=== PATIENT | male | born 1955 | race Caucasian/White ===

== ENCOUNTER 2019-06-23 07:00 | Outpatient (CLI) | payer BC, SELFPAY ==
[2019-06-23 11:51] LABS: Anion Gap 8.8 mmol/L (3-11); BUN 14 mg/dL (7-18); CO2 30.2 mmol/L (21.0-32.0); CREATININE 0.94 mg/dL (0.70-1.30); Calcium 9.2 mg/dL (8.5-10.1); Chloride 99 mmol/L (98-107); Glucose 87 mg/dL (74-106); Potassium 3.2 mmol/L (3.5-5.1); Sodium 138 mmol/L (136-145)
== END 2019-06-23 07:20 ==
PROVIDERS: PCP Family Medicine; Visit Provider Family Medicine
DX: I10 Essential (primary) hypertension (principal)
CPT/HCPCS: 36415; 80048

== ENCOUNTER 2019-08-30 08:18 | Emergency (ER) | payer BC, SELFPAY ==
[2019-08-30 08:28] VITALS: BP 142/89; PULSE 89; RESP 16; TEMP 36.7; O2SAT 98
--- NOTE | 2019-08-30 08:45 | DI.RAD_ITS ---
EXAM: XR PORTABLE CHEST AP XR PORTABLE CHEST AP CLINICAL HISTORY: cough. cough TECHNIQUE: 2D digital imaging was performed. COMPARISON: No exams were available for comparison FINDINGS: LUNGS: Clear. No pleural abnormality seen. HEART: Normal. MEDIASTINUM: Normal. OTHER FINDINGS: None. IMPRESSION: No acute pulmonary findings. DATA REPOSITORY: RADIATION DOSE DELIVERED:
--- NOTE | 2019-08-30 09:01 | W.ED.GENAD ---
Discharge Plan Disposition Patient Disposition: HOME Condition: Stable Discharge Details Chief Complaint: GenMedical Clinical Impression: URI (upper respiratory infection) Primary Care Provider: Armando Aponte ED Provider: Anders Marc Home Meds and New Rx's Prescriptions: Continued citalopram [Celexa] 20 mg tablet 20 mg PO DAILY Qty: 90 RF: 4 chlorthalidone 25 mg tablet 25 mg PO DAILY Qty: 90 RF: 4 amlodipine 5 mg tablet 5 mg PO DAILY Qty: 90 RF: 4 omeprazole 20 MG capsule,delayed release(DR/EC) 20 mg PO DAILY Qty: 90 RF: 4 losartan 100 mg tablet 100 mg PO DAILY Qty: 90 RF: 4 Discharge Instructions Instructions: Upper Respiratory Infection (ED) Additional Instructions: At this time your symptoms are unlikely to be caused by coronavirus; however, they could be and you are being tested. It takes over 72 hours for the test results to return. You will be contacted by [facility] staff when your results return. If you do not hear from them in 48 to 72 hours, please contact [facility]. Out of an abundance of precaution it is highly recommended that you self quarantine yourself for a total of 14 days or until symptom-free for greater than 24 to 48 hours. It would be prudent to wear a mask at all times, always wash her hands frequently, and follow-up closely with your primary care provider. It is recommended that you call your primary care provider prior to reassessment. If you are going to a health facility, please call/contact them before you arrive. At this time based on your current symptoms the CDC does not recommend admission, and there is no current clinical indication for your admission here at the hospital. However it is vitally important to monitor your symptoms closely, and if you notice any worsening of your symptoms, or any new symptoms such as worsening shortness of breath, difficulty breathing, persistent fever, worsening chills, chest pain, numbness, weakness, or fainting please call and then return immediately to the emergency department for reevaluation. Please call your primary care provider as soon as possible to make them aware of your current situation and for continued monitoring. As always, it was a pleasure participating in your medical care today. Radg-nkp-wkcbvjo medications as directed for symptomatic control. Ample fluid to avoid dehydration Stand Alone Forms: PENDING COVID-19 TESTING Medical Decision Making This is a 64-year-old gentleman with a history of hypertension, anxiety, GERD, smokes 5 cigarettes daily. 24-hour history of runny nose, nasal congestion, primarily dry cough, subjective hot flashes and general fatigue. He has not had any direct contact with any known coronavirus positive person. However in his work, although he has not traveled outside of [place] or [place], he has had anrq-ly-ygdx contact with many people throughout the region including [place], [place], [place]. He cannot speak for their health status. He did not receive the flu vaccine this year. He appears well, nontoxic, currently afebrile, O2 sats are appropriate on room air. Given his contact regionally with numerous individuals as well as his symptoms over the past 24 hours I do believe that testing for the Covid virus is reasonable. Patient does qualify as a person under interest, placed in room 6, all appropriate PPE used accordingly. I did contact [facility] and supplied them with the information that they requested. We will also obtain single view chest x-ray as well as the flu swab. He did not receive his flu vaccination this year Flu test negative. Chest x-ray unremarkable. Coronavirus testing pending The patient demonstartes some concerning red flags as noted by the CDC for coronavirus including fever, cough, and/or shortness of breath. The patient looks notably clinically well, and does not demonstrate evidence of respiratory distress, significant or severe illness, or sepsis. Per CDC recommendations, coronavirus testing has been performed and is approved by the [facility]. Additionally, patient currently does not demonstrate symptoms indicative of admission or further observation here. At this time based on the patient's current clinical picture symptoms are likely secondary to a non-coronavirus viral illness. Out of an abundance of precaution taking into account the current level of national concern, the patient's entire clinical picture, and CDC recommendations, the patient can be discharged home. Per CDC recommendations we will recommend a 14-day quarantine of the patient I have discussed good handwashing techniques, the importance of a mask, and we have also included CDC recommendations for home monitoring and isolation. I have extensively reviewed the treatment plan and discharge instructions with the patient. I have addressed all patient concerns at this time. The patient was made aware of what symptoms to monitor for that would warrant a return to the emergency department. I also discussed the importance of calling the patients's PCP, as well as the ED for any concern on prior to return. Discussed the plan with the patient, they demonstrate verbal understanding and agreement with our assessment and plan at this time. Medical Records Medical records reviewed: Yes I reviewed the patient's medical records. Imaging Data Radiologic Study: Attestation: I personally reviewed and interpreted this imaging study as follows: Imaging: X-Ray My impression: Read by me as negative, later confirmed by radiology Lab Data Lab results reviewed: Yes I reviewed the patient's lab results. Lab results narrative: 08/30/19 09:17 Nasopharynx Influenza Types A,B Antigen - Final Negative HPI General Mode of arrival: ambulatory. Date/Time Provider Initiated Documentation: 08/30/19 08:19. Limitations to Documentation: no limitations. Information obtained by: patient. HPI Narrative: This is a 64-year-old gentleman with history of hypertension, anxiety, GERD, smokes roughly 5 cigarettes daily, presents to the ER with primarily dry cough, hot flashes, fatigue, runny nose that began over the past 24 hours. 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 He has not taken any jfju-kem-uqlnvfs medications for his symptoms. Denies ear pain, sore throat, chest pain, abdominal pain, nausea, vomiting, bowel or bladder complaints. Related Data Home Medications Medication Instructions Recorded Confirmed omeprazole 20 mg PO DAILY #90 tab-cap 12/05/12 08/30/19 losartan 100 mg tablet 100 mg PO DAILY #90 tab 01/27/19 08/30/19 chlorthalidone 25 mg tablet 25 mg PO DAILY #90 tab 02/17/19 08/30/19 amlodipine 5 mg tablet 5 mg PO DAILY #90 tab 03/24/19 08/30/19 citalopram 20 mg tablet 20 mg PO DAILY #90 tab-cap 06/23/19 08/30/19 Previous Rx's Medication Instructions Recorded losartan 100 mg tablet 100 mg PO DAILY #90 tab 01/27/19 chlorthalidone 25 mg tablet 25 mg PO DAILY #90 tab 02/17/19 amlodipine 5 mg tablet 5 mg PO DAILY #90 tab 03/24/19 citalopram 20 mg tablet 20 mg PO DAILY #90 tab-cap 06/23/19 Allergies Allergy/AdvReac Type Severity Reaction Status Date / Time Penicillins Allergy Unknown Verified 08/30/19 08:32 ROSA Inhibitors AdvReac Intermediate cough Verified 08/30/19 08:32 General Stated Complaint: GenMedical MUNDO: 4 Review of Systems Constitutional Constitutional: Denies chills, Reports fatigue, Reports fever(s) (Subjective hot flashes) and Denies headache(s) Eyes Eyes: Denies eye discharge ENT Ears, Nose, Mouth, and Throat: Denies headache(s), Reports nasal congestion, Reports nasal discharge and Denies sore throat Cardiovascular Cardiovascular: Denies chest pain and Reports dyspnea Respiratory Respiratory: Reports cough and Reports dyspnea Gastrointestinal Gastrointestinal: Denies abdominal pain, Denies nausea and Denies vomiting Genitourinary Genitourinary: Denies dysuria Musculoskeletal Musculoskeletal: Denies myalgias Integumentary/Breasts Skin/Breast: Denies rash Neurologic Neurologic: Denies headache(s) Endocrine Endocrine: Reports fatigue COUNTS INCLUDE 234 BEDS AT THE [facility] Medical History Injury of knee (Resolved 11/02/13) Rupture of Achilles tendon (Resolved) Surgical History 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) Social History Smoking/Tobacco Use Status: Current every day Tobacco Type: cigarettes Alcohol Intake: current Alcohol Intake frequency: 0-2 drinks per day Alcohol type: beer Substance use type: marijuana Do you feel safe at home: Yes Do you feel safe in your relationship?: Yes Exam Const General: cooperative, healthy appearing, comfortable and no acute distress Orientation: alert and awake [facility] Head: normal to inspection, normocephalic and atraumatic Ears: external ears normal, TM's normal bilaterally and EAC's normal General nose exam: nasal discharge clear Mouth: moist mucous membranes Throat: posterior oropharynx normal Eyes Conjunctivae: conjunctivae normal Neck Neck: normal visual inspection, full ROM, no lymphadenopathy, no meningeal signs, trachea midline, supple and nontender Resp Effort & Inspection: normal respiratory effort, able to speak in complete sentences and cough Quality of cough: dry Auscultation: clear to auscultation bilaterally Cardio Rate: regular rate Rhythm: regular rhythm GI Palpation: soft and nontender Back/Spine/Pelvis Back: No back tenderness Skin General skin exam: no rashes or lesions noted Neuro General: patient alert, patient awake, moves all extremities and no focal motor deficits Sensory Exam: no sensory deficits noted Extrem General: normal to inspection and full ROM Psych Appearance: grossly normal Mental Status: mental status grossly normal Course Vital Signs Vital signs: Vital Signs Temperature 36.7 C 08/30/19 08:28 Pulse 89 08/30/19 08:28 Respiratory Rate 16 08/30/19 08:28 Blood Pressure 142/89 H 08/30/19 08:28 Pulse Oximetry 98 08/30/19 08:28 Temperature 36.7 C 08/30/19 08:28 Temperature Source Tympanic 08/30/19 08:28 Pulse 89 08/30/19 08:28 Respiratory Rate 16 08/30/19 08:28 Respiratory Effort 08/30/19 08:31 Blood Pressure 142/89 H 08/30/19 08:28 Blood Pressure Position Sitting 08/30/19 08:28 Pulse Oximetry 98 08/30/19 08:28 Oxygen Delivery Method Room Air 08/30/19 08:28 Oxygen Flow Rate 0 08/30/19 08:28 Pain Level 0 08/30/19 08:28
[2019-08-30 09:55] VITALS: RESP 18
[2019-09-04 15:16] LABS: COVID-19 RT-PCR Result Not Detected (NotDetected)
== END 2019-08-30 10:43 | disposition home or self-care (01) ==
PROVIDERS: Emergency Provider Physician Assistant; PCP Family Medicine
DX: J06.9 Acute upper respiratory infection, unspecified (principal); Z03.818 Encounter for observation for suspected exposure to other biological agents ruled out
CPT/HCPCS: 87449; 99283; U0003; 71045

== ENCOUNTER 2019-12-01 19:34 | Outpatient (REF) | payer BC, SELFPAY ==
[2019-12-04 11:10] LABS: Lyme Ab w Rflx to Lyme Confirm Negative (Negative)
[2019-12-05 23:29] LABS: Anaplasma phagocytophilum Negative (Negative); B. miyamotoi PCR Negative (Negative); Babesia divergens/MO-1 Negative (Negative); Babesia duncani Negative (Negative); Babesia microti Negative (Negative); Ehrlichia chaffeensis Negative (Negative); Ehrlichia ewingii/canis Negative (Negative); Ehrlichia muris eauclairensis Negative (Negative)
== END 2019-12-01 19:54 ==
LOC: LBN 19:34
PROVIDERS: PCP Family Medicine; Visit Provider Nurse Practitioner Family
DX: W57.XXXA Bitten or stung by nonvenomous insect and other nonvenomous arthropods, initial encounter (principal); T14.8XXA Other injury of unspecified body region, initial encounter
CPT/HCPCS: 87798; 86618

== ENCOUNTER 2019-12-28 17:24 | Emergency (ER) | payer BC, SELFPAY ==
[2019-12-28] VITALS (14 sets, daily range): BP systolic 120–135; BP diastolic 65–80; PULSE 63–105; RESP 13–22; TEMP 36.4–36.5; O2SAT 93–99
--- NOTE | 2019-12-28 17:30 | ED.GENADUL_ITS ---
Discharge Plan Disposition Patient Disposition: HOME Condition: Improving Discharge Details Chief Complaint: Allergic Clinical Impression: Hymenoptera reaction Primary Care Provider: Armando Aponte ED Provider: Carrillo Callahan Home Meds and New Rx's Prescriptions: New epinephrine 0.3 mg/0.3 mL auto-injector 0.3 mg IM ONCE Qty: 1 RF: 0 Continued losartan 100 mg tablet 100 mg PO DAILY Qty: 90 RF: 4 omeprazole 20 mg capsule,delayed release(DR/EC) 20 mg PO DAILY Qty: 90 RF: 4 chlorthalidone 25 mg tablet 25 mg PO DAILY Qty: 90 RF: 4 amlodipine 5 mg tablet 5 mg PO DAILY Qty: 90 RF: 4 citalopram [Celexa] 20 mg tablet 20 mg PO DAILY Qty: 90 RF: 4 Discharge Instructions Instructions: Urticaria (ED), Insect Bite or Sting (ED), General Allergic Reaction (ED) Additional Instructions: May apply ice to reduce pain and swelling from insect bite. May continue to use of Benadryl 25 to 50 mg every 4-6 hours as needed for itching. Please take the prednisone as prescribed. I have prescribed you an EpiPen which should be used for impending anaphylactic shock in the case of recurrent insect stings causing allergic reaction. Home to rest this evening. Return to the ER for any acute concerns. Medical Decision Making 64-year-old male presents from home after being stung in the left ankle by a wasp 45 minutes prior. Began to feel diffuse itching and therefore presented to the ER. He arrives a temp of 36, pulse 92, blood pressure 121/68, room air oxygenation of 95%. He has fairly diffuse urticaria and subjective sensation of throat tightness but no evidence of wheeze or oropharyngeal swelling. IV access established, patient given parenteral steroid, antihistamine and fluids. Patient observed on security monitor. He has significant subjective improvement as well as objective near complete resolution of his urticaria. Consistent with allergic reaction to hymenoptera. I will advocate that he take a small burst of prednisone to prevent a recrudescence of symptoms. I will prescribe him an EpiPen in case of future anaphylactic reaction. He is stable and improved, appropriate for discharge to home. HPI General Mode of arrival: ambulatory . Date/Time Provider Initiated Documentation: 12/28/19 17:26 . Limitations to Documentation: no limitations . Information obtained by: patient . History of Present Illness described as moderate, Quality is described as constant, and is localized to the chest and abdomen. Patient started experiencing this minute(s) and it has been con stant. No relieving factors improve symptom(s), No exacerbating factors reported . Patient notes other (Mild shortness of breath, diffuse hives and itching). Patient did receive the following treatments prior to arrival, none Related Data Home Medications Medication Instructions Recorded Confirmed chlorthalidone 25 mg tablet 25 mg PO DAILY #90 tab 02/17/19 12/28/19 amlodipine 5 mg tablet 5 mg PO DAILY #90 tab 03/24/19 12/28/19 citalopram 20 mg tablet 20 mg PO DAILY #90 tab-cap 09/21/19 12/28/19 losartan 100 mg tablet 100 mg PO DAILY #90 tab 12/22/19 12/28/19 omeprazole 20 mg capsule,delayed 20 mg PO DAILY #90 tab-cap 12/22/19 12/28/19 release epinephrine 0.3 mg IM ONCE #1 each 12/28/19 Previous Rx's Medication Instructions Recorded chlorthalidone 25 mg tablet 25 mg PO DAILY #90 tab 02/17/19 amlodipine 5 mg tablet 5 mg PO DAILY #90 tab 03/24/19 citalopram 20 mg tablet 20 mg PO DAILY #90 tab-cap 09/21/19 losartan 100 mg tablet 100 mg PO DAILY #90 tab 12/22/19 omeprazole 20 mg capsule,delayed 20 mg PO DAILY #90 tab-cap 12/22/19 release epinephrine 0.3 mg IM ONCE #1 each 12/28/19 Allergies Allergy/AdvReac Type Severity Reaction Status Date / Time venom-wasp Allergy Severe Anaphylaxsi Unverified 12/28/19 17:39 s Penicillins Allergy Unknown Verified 12/22/19 08:04 ROSA Inhibitors AdvReac Intermediate cough Verified 12/22/19 08:04 General MUNDO: 4 Review of Systems Narrative: Standing left ankle, denies other insult. Has recently been well. 6 systems reviewed and otherwise negative [facility] Medical History Injury of knee (Resolved 11/02/13) Rupture of Achilles tendon (Resolved) Social History Smoking/Tobacco Use Status: Current every day Tobacco Type: cigarettes Alcohol Intake: current Alcohol Intake frequency: 0-2 drinks per day Alcohol type: beer Drug use: Occasionally Substance use type: marijuana Do you feel safe at home: Yes Do you feel safe in your relationship?: Yes Exam Narrative Exam Narrative: GEN: awake, alert, oriented 3. Pleasant, well groomed, interactive. HEAD: Normocephalic, atraumatic ENT: Mucous membranes moist, oropharynx erythematous but without swelling or asymmetry, External ear exam unremarkable EYES: PERRL, EOMI NECK: Full ROM, no STEVE, no menigismus CHEST/RESP: Nontender, clear to auscultation bilateral, no wheeze/rhonchi/rales CARDIOVASCULAR: Tachycardic, no murmur, rub octavio. 2+ Rad pulse bilateral ABDOMEN: Soft, nontender, no mass. +Bowel sounds EXT: Full ROM, no paloma Skin: Raised, urticaria present on abdomen, chest and extremities Neuro: Grossly normal neurologic exam, conversant, interactive. Psych: Speech fluent, thoughts congruent, affect normal
[2019-12-28] MEDS: diphenhydrAMINE 50 MG/ML VIAL IVP (17:37)
[2019-12-28] MEDS: FAMOTIDINE 20 MG/50 ML BAG 200 MG IVPB (17:37)
[2019-12-28] MEDS: Normal Saline 1,000 ML 1000 ML IV (17:38)
[2019-12-28] MEDS: methylPREDNISolone SUCC 125 MG VIAL IVP (17:38)
[2019-12-28] MEDS: Ondansetron 4 MG/2 ML VIAL (17:43)
--- NOTE | 2019-12-28 18:50 | NUR.NOTE ---
bacitracin, bandaid and ice applied to bee sting L ankle.Nursing Note:
== END 2019-12-28 19:06 | disposition home or self-care (01) ==
PROVIDERS: Emergency Provider Emergency Medicine; PCP Family Medicine
DX: T63.461A Toxic effect of venom of wasps, accidental (unintentional), initial encounter (principal); L50.0 Allergic urticaria; R11.2 Nausea with vomiting, unspecified; R09.89 Other specified symptoms and signs involving the circulatory and respiratory systems; I10 Essential (primary) hypertension
CPT/HCPCS: 96361; 96365; 96375; 99284; J1200; J2405; J2930

== ENCOUNTER 2020-12-17 03:57 | Outpatient (CLI) | payer BC, SELFPAY ==
[2020-12-17 12:43] LABS: Abs Immature Grans 0.03 10^3/uL (0.0-0.06); Absolute Basophil Count 0.03 10^3/uL (0.0-0.2); Absolute Eosinophil Count 0.12 10^3/uL (0.0-0.7); Absolute Lymphocyte Count 1.64 10^3/uL (1.2-3.4); Absolute Monocyte Count 0.64 10^3/uL (0.1-0.8); Basophils % 0.5; Eosinophils % 1.9; HCT 42.6 % (40.0-50.0); HGB 14.5 g/dL (13.5-17.5); Immature Grans % 0.5; Lymphocytes % 25.4; MCH 32.3 pg (27.0-33.0); MCV 94.9 fL (80-95); MPV 8.3 fL (8.0-11.0); Monocytes % 9.9; Neutrophils % 61.8; Nucleated RBC 0 %; Platelet Count 271 10^3/uL (130-400); RBC 4.49 10^6/uL (4.36-5.78); RDW 12.2 % (11.8-14.1); RDW-SD 42.7 fL; WBC 6.46 10^3/uL (4.4-10.8)
[2020-12-17 12:59] LABS: Hemoglobin A1C 5.5 % (<5.7)
[2020-12-17 14:07] LABS: ALT 31 U/L (16-63); AST 21 U/L (15-37); Albumin 3.4 g/dL (3.4-5.0); Alkaline Phosphatase 109 U/L (46-116); Anion Gap 9.9 mmol/L (3-11); BUN 9 mg/dL (7-18); Bilirubin, Total 0.8 mg/dL (0.2-1.0); CO2 29.1 mmol/L (21.0-32.0); CREATININE 1.1 mg/dL (0.70-1.30); Calcium 8.6 mg/dL (8.5-10.1); Calculated LDL 111 mg/dL (<100); Chloride 99 mmol/L (98-107); Cholesterol 168 mg/dL (<200); Glucose 127 mg/dL (74-106); HDL Cholesterol 40 mg/dL (40-60); Potassium 3.7 mmol/L (3.5-5.1); Sodium 138 mmol/L (136-145); TSH 1.58 uIU/mL (0.36-3.74); Total Protein 6.6 g/dL (6.4-8.2); Triglyceride 86 mg/dL (<150)
[2020-12-17 14:32] LABS: FREE T4 0.93 ng/dL (0.76-1.46)
[2020-12-20 15:59] LABS: Testosterone, Free 8.51 ng/dL (3.67-13.9); Testosterone, Total 266 ng/dL (240-950)
== END 2020-12-17 03:58 | disposition home or self-care (01) ==
LOC: LOS 03:57
PROVIDERS: PCP Nurse Practitioner Family; Visit Provider Nurse Practitioner Family
DX: E29.1 Testicular hypofunction (principal); I10 Essential (primary) hypertension; F32.9 Major depressive disorder, single episode, unspecified; K21.9 Gastro-esophageal reflux disease without esophagitis; R73.09 Other abnormal glucose
CPT/HCPCS: 36415; 80053; 80061; 84402; 84403; 83036; 84439; 84443; 85025

== ENCOUNTER 2021-01-06 02:01 | Outpatient (CLI) | payer BC, SELFPAY ==
[2021-01-13 16:23] LABS: Testosterone, Free 7.56 ng/dL (3.67-13.9); Testosterone, Total 270 ng/dL (240-950)
== END 2021-01-06 02:02 | disposition home or self-care (01) ==
LOC: LOS 02:01
PROVIDERS: PCP Nurse Practitioner Family; Visit Provider Nurse Practitioner Family
DX: E29.1 Testicular hypofunction (principal)
CPT/HCPCS: 36415; 84402; 84403

== ENCOUNTER 2021-06-24 16:41 | Outpatient (CLI) | payer BC, SELFPAY ==
--- NOTE | 2021-06-24 16:30 | RT.EKG_ITS ---
APPROVED REPORT Exam: Resting ECG Reason for Exam: Dizziness Patient Location: O HR:70 bpm ECG Measurements Heart Rate 70 AXIS PA 208 P 56 QRSd 180 QRS -22 QT 477 T 121 QTc 516 Conclusion Sinus rhythm...normal P axis, V-rate 60- 99 Atrial premature complex...SV complex w/ short R-R interval Left bundle branch block...QRSd>120, broad/notched R ST elevation secondary to IVCD...Multiple VCG criteria
== END 2021-06-24 16:42 | disposition home or self-care (01) ==
LOC: DI.CM 16:42
PROVIDERS: PCP Nurse Practitioner Family; Visit Provider Physician Assistant
DX: R42 Dizziness and giddiness; I49.1 Atrial premature depolarization; I44.7 Left bundle-branch block, unspecified; I45.9 Conduction disorder, unspecified
CPT/HCPCS: 93010

== ENCOUNTER 2021-06-24 18:59 | Outpatient (REF) | payer BC, SELFPAY ==
[2021-06-26 15:47] LABS: COVID-19 RT-PCR UVMMC Result Positive (Negative)
== END 2021-06-24 19:00 | disposition home or self-care (01) ==
LOC: LBN 18:59
PROVIDERS: PCP Nurse Practitioner Family; Visit Provider Physician Assistant
DX: R05.9 Cough, unspecified (principal); R42 Dizziness and giddiness; Z20.822 Contact with and (suspected) exposure to COVID-19
CPT/HCPCS: U0003

== ENCOUNTER 2022-02-17 02:14 | Outpatient (CLI) | payer BC, SELFPAY ==
[2022-02-17 12:24] LABS: CREATININE 1.1 mg/dL (0.70-1.30); Estimated GFR 74.96 (mL/min/1.73m2); Potassium 3.3 mmol/L (3.5-5.1)
== END 2022-02-17 02:15 | disposition home or self-care (01) ==
LOC: LOS 02:15
PROVIDERS: PCP Nurse Practitioner Family; Visit Provider Nurse Practitioner Family
DX: I10 Essential (primary) hypertension (principal)
CPT/HCPCS: 36415; 82565; 84132

== ENCOUNTER 2022-10-29 02:56 | Outpatient (CLI) | payer MEDICARE, SELFPAY ==
[2022-10-29 12:39] LABS: Anion Gap 8.8 mmol/L (3-11); BUN 14 mg/dL (7-18); CO2 30.2 mmol/L (21.0-32.0); CREATININE 1.1 mg/dL (0.70-1.30); Calcium 8.7 mg/dL (8.5-10.1); Chloride 103 mmol/L (98-107); Glucose 103 mg/dL (74-106); Sodium 142 mmol/L (136-145)
[2022-10-29 13:01] LABS: Potassium 2.8 mmol/L (3.5-5.1)
[2022-10-29 22:35] LABS: PSA, Screening 1.6 ng/mL (<=4.5)
== END 2022-10-29 02:57 | disposition home or self-care (01) ==
LOC: LOS 02:56
PROVIDERS: PCP Nurse Practitioner Family; Visit Provider Nurse Practitioner Family
DX: I10 Essential (primary) hypertension (principal); E87.6 Hypokalemia; Z12.5 Encounter for screening for malignant neoplasm of prostate
CPT/HCPCS: 36415; 80048; 84153

== ENCOUNTER 2022-11-05 03:06 | Outpatient (CLI) | payer MEDICARE, SELFPAY ==
[2022-11-05 12:32] LABS: Anion Gap 5.2 mmol/L (3-11); BUN 20 mg/dL (7-18); CO2 28.8 mmol/L (21.0-32.0); Calcium 9.3 mg/dL (8.5-10.1); Chloride 105 mmol/L (98-107); Estimated GFR 83.52 (mL/min/1.73m2); Glucose 91 mg/dL (74-106); Potassium 4.6 mmol/L (3.5-5.1); Sodium 139 mmol/L (136-145)
== END 2022-11-05 03:07 | disposition home or self-care (01) ==
LOC: LOS 03:06
PROVIDERS: PCP Nurse Practitioner Family; Visit Provider Nurse Practitioner Family
DX: E87.6 Hypokalemia (principal)
CPT/HCPCS: 36415; 80048

== ENCOUNTER 2023-01-26 13:45 | Outpatient (CLI) | payer MEDICARE, SELFPAY ==
[2023-01-26 13:37] LABS: Potassium 3.5 mmol/L (3.5-5.1)
== END 2023-01-26 13:46 | disposition home or self-care (01) ==
LOC: LBO 13:45
PROVIDERS: PCP Nurse Practitioner Family; Visit Provider Nurse Practitioner Family
DX: E87.6 Hypokalemia (principal)
CPT/HCPCS: 36415; 84132

== ENCOUNTER 2024-02-23 02:07 | Outpatient (CLI) | payer MEDICARE, SELFPAY ==
--- NOTE | 2024-02-23 07:45 | DI.US_ITS ---
Exam(s) US LOWER EXTREMITY VENOUS LT EXAM: US LOWER EXTREMITY VENOUS LT CLINICAL HISTORY: evaluate DVT vs phlebitis,LT LEG SWELLING,M79.879. TECHNIQUE: Lower extremity venous ultrasound performed using grayscale, color-flow, and spectral Do ppler analysis. COMPARISON: No exams were available for comparison FINDINGS: The common femoral, femoral and popliteal veins demonstrate normal compressibility, augmentation, and color Doppler. The posterior tibial veins are patent. No saphenous vein thrombosis. A superficial venous thrombosis is seen in the proximal to mid calf measuring approximately 5 cm in length.. No he matoma or Wagner's cyst is seen. IMPRESSION: Superficial thrombus in the calf region. No evidence of DVT. DATA REPOSITORY:
== END 2024-02-23 02:27 ==
LOC: DI 02:07
PROVIDERS: PCP Nurse Practitioner Family; Visit Provider Nurse Practitioner Family
DX: M79.89 Other specified soft tissue disorders (principal)
CPT/HCPCS: 93971

== ENCOUNTER 2024-03-22 17:22 | Emergency (ER) | payer MEDICARE, SELFPAY ==
[2024-03-22 17:33] VITALS: BP 109/84; PULSE 84; RESP 15; TEMP 36.5; O2SAT 96
--- NOTE | 2024-03-22 18:13 | ED.GENADUL_ITS ---
Discharge Plan Disposition Patient Disposition: Home Condition: Stable Discharge Details Clinical Impression: Laceration of right hand Primary Care Provider: Caren Hawley ED Provider: Felisha Matta Home Meds and New Rx's Prescriptions: No Action epinephrine 0.3 mg/0.3 mL auto-injector 0.3 ml IM Q5-15M PRN (Reason: hypersensitivity reaction) Qty: 2 4RF amlodipine 5 mg tablet 5 mg PO DAILY Qty: 90 3RF chlorthalidone 25 mg tablet 25 mg PO DAILY Qty: 90 3RF losartan 100 mg tablet 100 mg PO DAILY Qty: 90 3RF omeprazole 20 mg capsule,delayed release(DR/EC) 20 mg PO DAILY Qty: 90 3RF potassium chloride 20 mEq tablet extended release 20 meq PO DAILY Qty: 90 3RF Discharge Instructions Instructions: Laceration Repair With Stitches ED Additional Instructions: Keep clean and dry. Have sutures removed in 7 days. No swimming or soaking. After 12 to 24 hours you may wash under running soap and water. Allow to air dry at least 2 hours a day. Return sooner for any red streaks, swelling, fever, drainage or signs of infection. Follow up with primary care provider in 3-5 days if needed. Return to ED sooner if any worsening or concerns. Referrals: Caren Hawley, LEGAL EXECUTIVE [Primary Care Provider] - 1 week HPI General Mode of arrival: ambulatory . Date/Time Provider Initiated Documentation: 03/22/24 17:45 . Limitations to Documentation: no limitations . Information obtained by: patient, RN notes reviewed and old records reviewed . HPI Narrative: 68-year-old male presents to the ER with a chief complaint of right palm laceration which occurred approximately 2 hours prior to arrival. He reports that he fell cutting the palm of his right hand. He is able to make a fist and extend his fingers without difficulty. Last tetanus vaccination was approximately 8 years ago. He is have a past medical history of hypertension, anxiety and depression. Related Data Home Medications ?Medication ?Instructions ?Recorded ?Confirmed amlodipine 5 mg tablet 5 mg PO DAILY #90 tabs 07/26/23 03/22/24 chlorthalidone 25 mg tablet 25 mg PO DAILY #90 tabs 07/26/23 03/22/24 losartan 100 mg tablet 100 mg PO DAILY #90 tabs 07/26/23 03/22/24 omeprazole 20 mg capsule,delayed 20 mg PO DAILY #90 caps 07/26/23 03/22/24 release potassium chloride 20 mEq 20 meq PO DAILY #90 tabs 07/26/23 03/22/24 tablet,extended release epinephrine 0.3 mg/0.3 mL 0.3 ml IM Q5-15M PRN 03/01/24 03/22/24 injection, auto-injector hypersensitivity reaction #2 ea Previous Rx's ?Medication ?Instructions ?Recorded amlodipine 5 mg tablet 5 mg PO DAILY #90 tabs 07/26/23 chlorthalidone 25 mg tablet 25 mg PO DAILY #90 tabs 07/26/23 losartan 100 mg tablet 100 mg PO DAILY #90 tabs 07/26/23 omeprazole 20 mg capsule,delayed 20 mg PO DAILY #90 caps 07/26/23 release potassium chloride 20 mEq 20 meq PO DAILY #90 tabs 07/26/23 tablet,extended release epinephrine 0.3 mg/0.3 mL 0.3 ml IM Q5-15M PRN 03/01/24 injection, auto-injector hypersensitivity reaction #2 ea Allergies Allergy/AdvReac Type Severity Reaction Status Date / Time venom-wasp Allergy Severe Anaphylaxsi Verified 03/01/24 07:46 s Penicillins Allergy Unknown unknown Verified 03/01/24 07:46 ROSA Inhibitors AdvReac Intermediate cough Verified 03/01/24 07:46 General Stated Complaint: Laceration MUNDO: 4 Review of Systems All systems reviewed & are unremarkable except as noted in HPI and below Integumentary/Breasts Skin/Breast: Reports wounds (Laceration right hand) Exam Extrem Right upper extremity: hand Details: laceration palm palmar aspect central Details: irregular, flap, puncture, involving subcutaneous tissue, with motor nerve function intact and with sensation intact Hand/finger images: 2 1. Approximately 2 cm laceration noted to the palmar surface of his right hand, bleeding controlled at this time. Circulation sensation movement intact. Course Vital Signs Vital signs: Vital Signs Temperature 36.5 C 03/22/24 17:33 Pulse 84 03/22/24 17:33 Respiratory Rate 15 03/22/24 17:33 Blood Pressure 109/84 03/22/24 17:33 Pulse Oximetry 96 03/22/24 17:33 Temperature 36.5 C 03/22/24 17:33 Pulse 84 03/22/24 17:33 Respiratory Rate 15 03/22/24 17:33 Respiratory Effort Normal 03/22/24 17:37 Blood Pressure 109/84 03/22/24 17:33 Blood Pressure Position Sitting 03/22/24 17:33 Pulse Oximetry 96 03/22/24 17:33 Oxygen Delivery Method Room Air 03/22/24 17:33 Oxygen Flow Rate 0 03/22/24 17:33 Procedures Laceration Laceration 1: Site: hand Side (If applicable): right Size (cm): 2 Description: flap and irregular Depth: simple, single layer Local anesthetic: Lidocaine 1% Amount of anesthesia used (mL): 3 Pre-repair: wound explored, irrigated extensively and deep structures intact Skin layer closed with: nylon Size (cm): 4-0 Number of sutures: 4 Technique: simple, interrupted Medical Decision Making 68-year-old male presents to the ER with a chief complaint of right palm laceration which occurred approximately 2 hours prior to arrival. He reports that he fell cutting the palm of his right hand. He is able to make a fist and extend his fingers without difficulty. Last tetanus vaccination was approximately 8 years ago. He is have a past medical history of hypertension, anxiety and depression. Patient is refusing x-ray at this time. Will give him a tetanus booster. Informed patient that I cannot rule out foreign body without getting imaging he verbalized understanding. He does not appear to be under the influence of any substances at this time and is able to make his own medical decisions. Laceration cleaned with chlorhexidine scrub and sterile saline, anesthetized sized with 1% lidocaine, patient tolerated with some difficulty. Laceration repaired with 4 simple interrupted 4.0 nylon sutures. Wound well-approximated. Will place dressing and instructed on home care and follow-up care. This text was generated using [employer] system, please disregard any oddities of phrase or misspellings. Quality:SDOH Health Related Social Needs: 2 Health related social needs material hardship(utilitibrandyn s)(Z59.87) Health related social needs details . PFSH All Active Problems Laceration of right hand (Acute) Superficial phlebitis of left leg (Acute) Hyperlipidemia (Chronic) Essential hypertension (Chronic) Male erectile disorder (Chronic) Gastroesophageal reflux disease (Chronic) Varicose veins of lower extremity (Chronic) Obesity (Chronic) Sigmoid diverticulosis (Chronic) Left bundle branch block (Acute) Cigarette smoker (Chronic) Medical History Generalized anxiety disorder Depressive disorder Surgical History Status post total left knee replacement Family History Mother Stomach cancer Father Lung cancer Brother No problems noted. Brother No problems noted. Son No problems noted. Daughter No problems noted. Maternal Grandfather No problems noted. Maternal Grandmother No problems noted. Paternal Grandfather No problems noted. Paternal Grandmother No problems noted. Social History Smoking/Tobacco Use Status: Current every day Tobacco Type: cigarettes Second Hand Exposure: Yes Smoking risk assessment performed?: Yes Alcohol Intake: current Alcohol Intake frequency: 0-2 drinks per day Alcohol type: beer Drug use: Rarely Substance use type: marijuana Caregiver/Support person: No Household members: significant other Housing: house Communication Needs: None Pets and animals: Yes Pets and animals: cat(s), dog(s) and farm animals Sexually active: Yes Do you think of yourself as: straight/heterosexual Current gender identity: male What is your relationship status?: living with partner How often do you talk on the phone with friends or family?: decline to answer How often do you get together with friends or relatives?: decline to answer How often do you attend caodaism or caodaism services?: decline to answer Do you belong to any clubs or organized social groups?: no Panel score (0-1 are the most socially isolated patients): 1 What type of physical activity do you participate in: walking Frequency: 3-4 times per week Elina/L[employer] Day: Jewish Special elina needs: No Seatbelt use: sometimes Helmet use: No Drive intox or ride w/intox hazardous materials driver: No Do you feel safe at home: Yes Do you feel safe in your relationship?: Yes PAWSS Have you Been Recently Intoxicated or Drunk Within the Last 30 days?: No Have you Ever Experienced Previous Episodes of Alcohol Withdrawal?: No Have you ever Experienced Withdrawal Seizures?: No Have you ever Experienced Delirium Tremens(DT)s?: No Have you ever undergone Alcohol Rehabilitation Treatment (i.e, inpt ot outpatient treatment programs)?: No Have you ever Experienced Blackouts?: No Have you ever Combined Alcohol with other Downers within the last 90 days?: No Have you ever Combined Alcohol with any other Substance of Abuse during the last 90 days?: No Positive Blood Alcohol level on Presentation? [PCS.BAL]: No Evidence of Increased Autonomic Activity (i.e. HR>120, tremor, sweating, agitation, nausea)?: No Result: 0
[2024-03-22] MEDS: Lidocaine 1% Multi-Dose 20 ML VIAL IJ (19:06)
== END 2024-03-22 19:40 | disposition home or self-care (01) ==
PROVIDERS: Emergency Provider Registered Nurse Emergency; PCP Nurse Practitioner Family
DX: S61.411A Laceration without foreign body of right hand, initial encounter (principal); I10 Essential (primary) hypertension; E78.5 Hyperlipidemia, unspecified; F17.210 Nicotine dependence, cigarettes, uncomplicated; W19.XXXA Unspecified fall, initial encounter; Z23 Encounter for immunization
CPT/HCPCS: 12002; 90471; 90715; 99283; J2003

== ENCOUNTER 2024-03-29 03:22 | Outpatient (CLI) | payer MEDICARE, SELFPAY ==
[2024-03-29 12:46] LABS: ALT 23 U/L (16-63); AST 20 U/L (15-37); Albumin 3.4 g/dL (3.4-5.0); Alkaline Phosphatase 94 U/L (46-116); Anion Gap 9.7 mmol/L (3-11); BUN 18 mg/dL (7-18); Bilirubin, Total 0.64 mg/dL (0.2-1.0); CO2 26.3 mmol/L (21.0-32.0); CREATININE 1.1 mg/dL (0.70-1.30); Calcium 9.4 mg/dL (8.5-10.1); Chloride 105 mmol/L (98-107); Estimated GFR 74.04 (mL/min/1.73m2); Glucose 92 mg/dL (74-106); Potassium 3.4 mmol/L (3.5-5.1); Sodium 141 mmol/L (136-145); Total Protein 7.2 g/dL (6.4-8.2)
[2024-03-29 12:51] LABS: Hemoglobin A1C 5.3 % (<5.7)
[2024-03-29 13:12] LABS: Calculated LDL 107 mg/dL (<100); Cholesterol 177 mg/dL (<200); HDL Cholesterol 53 mg/dL (40-60); Triglyceride 87 mg/dL (<150)
[2024-03-29 19:25] LABS: HBs Antibody, Quant <3.1 mIU/mL (See Note); Hep B Surface Ab Negative (See Note); Hepatitis B Core Antibody Negative (Negative); Hepatitis B Surface Antigen Negative (Negative)
[2024-03-29 19:29] LABS: Hepatitis C Ab w Rflx HCV PCR Negative (Negative)
[2024-03-29 19:34] LABS: HIV-1/2 Ag & Ab Screen Negative (Negative)
== END 2024-03-29 03:23 | disposition home or self-care (01) ==
LOC: LOS 03:22
PROVIDERS: PCP Nurse Practitioner Family; Visit Provider Nurse Practitioner Family
DX: Z11.59 Encounter for screening for other viral diseases (principal); I10 Essential (primary) hypertension; Z11.4 Encounter for screening for human immunodeficiency virus [HIV]; Z12.5 Encounter for screening for malignant neoplasm of prostate; R73.01 Impaired fasting glucose; L98.9 Disorder of the skin and subcutaneous tissue, unspecified; T14.8XXA Other injury of unspecified body region, initial encounter; L08.9 Local infection of the skin and subcutaneous tissue, unspecified
CPT/HCPCS: 36415; 80053; 80061; 84153; 86704; 86706; 86803; 87340; 87389; 83036

== ENCOUNTER 2024-03-29 10:41 | Outpatient (REF) | payer MEDICARE, SELFPAY | END 2024-03-29 10:42 | disposition home or self-care (01) | LOC: LBN 10:41 | PROVIDERS: PCP Nurse Practitioner Family; Visit Provider Nurse Practitioner Family | DX: L98.9 Disorder of the skin and subcutaneous tissue, unspecified (principal); T14.8XXA Other injury of unspecified body region, initial encounter; L08.9 Local infection of the skin and subcutaneous tissue, unspecified | CPT/HCPCS: 87077; 87070; 87186; 87205 ==

== ENCOUNTER 2025-01-29 10:31 | Outpatient (CLI) | payer MEDICARE, SELFPAY ==
[2025-01-29 13:11] LABS: Anion Gap 7.7 mmol/L (3-11); BUN 15 mg/dL (7-18); CO2 29.3 mmol/L (21.0-32.0); Calcium 9.4 mg/dL (8.5-10.1); Chloride 100 mmol/L (98-107); Estimated GFR 93.61 (mL/min/1.73m2); Glucose 104 mg/dL (74-106); Potassium 3.7 mmol/L (3.5-5.1); Sodium 137 mmol/L (136-145); Vitamin B12 375 pg/mL (193-986)
== END 2025-01-29 10:32 | disposition home or self-care (01) ==
PROVIDERS: PCP Nurse Practitioner Family; Visit Provider Nurse Practitioner Family
DX: K21.9 Gastro-esophageal reflux disease without esophagitis (principal); I10 Essential (primary) hypertension
CPT/HCPCS: 36415; 80048; 82607